=== PATIENT | female | born 1975 | race Caucasian/White ===

== ENCOUNTER 2017-09-28 08:24 | Day surgery (SDC) | payer MEDICAID ==
[~2017-09-28] VITALS: Ht 157.5 cm; Wt 74.8 kg
[~2017-09-28 08:24] MED LIST: LACTATED RINGERS 1,000 ML IV SCH
[2017-09-28 09:16] LABS: UCG SCREEN NEGATIVE
[2017-09-28] MEDS ORDERED: FENTANYL CITRATE/PF 50MCG/ML 2ML VIAL ONE (11:21)
[2017-09-28] MEDS ORDERED: MIDAZOLAM HCL 2 MG/2 ML VIAL ONE (11:22)
[2017-09-28] MEDS ORDERED: PROPOFOL 200MG/20ML VIAL IV ONE (11:22)
[2017-09-28] MEDS ORDERED: MEPERIDINE HCL/PF 25MG/ML CPJ IV PRN (12:00)
[2017-09-28] MEDS ORDERED: LABETALOL 5MG/ML SYR 20 MG/4 ML SYRINGE IV PRN (12:00)
[2017-09-28] MEDS ORDERED: ONDANSETRON HCL 4MG/2ML VIAL IV PRN (12:00)
[2017-09-28] MEDS ORDERED: DEXAMETHASONE 4MG/ML 1ML VIAL ONE (12:32)
[2017-09-28] MEDS ORDERED: ONDANSETRON HCL 4MG/2ML VIAL ONE (12:32)
[2017-09-28] MEDS: HYDROMORPHONE HCL/PF 2MG/ML CPJ IV PRN ×4 (12:41→14:14)
[2017-09-28] MEDS ORDERED: BUPIVACAINE HCL 0.5% (5MG/ML) 50ML ONE (12:44)
[2017-09-28 14:14] VITALS: BP 115/71
== END 2017-09-28 14:35 | disposition home or self-care (01) ==
LOC: OR 08:24
PROVIDERS: ATTEND Surgery
DX: K43.9 Ventral hernia without obstruction or gangrene (principal)
CPT/HCPCS: 49560; 49568; 81025; J1100; J1170; J2250; J2405; J3010; J3490; J7120; C1781; J2704; J7050